=== PATIENT | male | born 1995 | race Caucasian/White ===

== ENCOUNTER 2021-11-08 03:41 | Emergency (ER) | payer OTHER ==
[2021-11-08 04:36] LABS: HEMOGLOBIN 16.2 gm/dl (14.0-17.5); RED BLOOD COUNT 4.82 M/UL (4.20-5.50); WHITE BLOOD COUNT 9.9 K/UL (4.5-11.0)
[2021-11-08 05:03] LABS: BUN/CREATININE RATIO 8 (0-10)
== END 2021-11-08 10:06 | disposition left against medical advice (07) ==
LOC: ER1 03:41
DX: R07.89 Other chest pain (principal); R55 Syncope and collapse; Z20.822 Contact with and (suspected) exposure to COVID-19
CPT/HCPCS: 0240U; 71045; 80053; 82550; 82553; 84484; 85025; 93005; 96374; 99283; J2405